=== PATIENT | male | born 1975 | race Caucasian/White ===

== ENCOUNTER → 2020-06-09 11:22 | Outpatient (CLI) | payer OTHER, SELFPAY ==
[2020-06-09 12:57] LABS: COVID19 -Nasal RAPID Negative (Negative)
== END ==
PROVIDERS: PCP Family Medicine; Visit Provider Physician Assistant
DX: Z11.59 Encounter for screening for other viral diseases (principal)
CPT/HCPCS: 87635

== ENCOUNTER 2020-06-10 06:28 | Day surgery (SDC) | payer OTHER, SELFPAY ==
[2020-06-09 14:53] VITALS: BMI 34.7
[2020-06-10] VITALS (9 sets, daily range): BP systolic 110–146; BP diastolic 55–89; PULSE 104–115; RESP 12–24; TEMP 36.1–36.9; O2SAT 83–99; BMI 35.3
--- NOTE | 2020-06-10 | DI.RAD.S_ITS ---
PROCEDURE: XR LUMBAR SPINE 2-3V INDICATIONS: L5-S1 MICRODISCECTOMY TECHNIQUE: Fluoroscopic images were obtained during an operative procedure and submitted for interpretation following the completion of the procedure. COMPARISON: [facility] Outside Film, CR, XR LUMBAR SPINE 2 OR 3 VIEWS, 10/30/2019, 11:43. [facility] Outside Film, MR, MR LUMBAR SPINE WITHOUT CONTRAST, 11/14/2019, 13:02. FINDINGS: These fluoroscopic images were performed for intraoperative localization. On these images, intraoperative equipment is seen at the L5-S1 level. Please correlate with intraoperative findings. IMPRESSION: Normal intraoperative examination. Dictated by: Michoacano Burns M.D. on 06/10/2020 at 8:27 Approved by: Michoacano Burns M.D. on 06/10/2020 at 8:28
[2020-06-10] MEDS: ACETAMINOPHEN 325 MG TABLET 975 MG PO (06:49)
[2020-06-10] MEDS: CELECOXIB 200 MG CAPSULE 400 MG PO (06:50)
[2020-06-10] MEDS: LACTATED RINGERS 1,000 ML 42 ML IV (07:07)
--- NOTE | 2020-06-10 07:23 | PM.PREOP ---
Pre-operative Note COVID-19 COVID-19 status: Negative Result date/Date tested (Pos, Neg/Pending): 06/09/20 Interval Note History & Physical reviewed/Exam performed by Physician: Yes Changes to H&P: Yes H&P completed within 30 days and has changed as indicated here:: Pain is getting much worse and difficulty urinating.
[2020-06-10] MEDS: CEFAZOLIN 2 GM/100 ML FROZ.PIGGY IV (07:45)
--- NOTE | 2020-06-10 08:05 | SUR.OPER ---
Prone on spine table, head in foam head support, padded chest and pelvic supports, gel pad at knees, lower legs supported by pillows; nipples, genitalia and toes free of pressure, arms secured on foam padded arm boards at <90 degrees abduction. Tape over blanket at thigh secured to table.
[2020-06-10] MEDS: THROMBIN (RECOMBINANT) 5,000 UNIT VIAL 5000 UNIT TOP (08:16)
[2020-06-10] MEDS: SODIUM CHLORIDE 0.9% 1,000 ML, GENTAMICIN 80 MG IRR (08:17)
[2020-06-10] MEDS: BUPIVACAINE 0.25% (PF) 8 ML, fentaNYL 100 MCG INJ (08:20)
--- NOTE | 2020-06-10 09:09 | P.OP_ITS ---
Operative Date/Time/Diagnoses Date of procedure: 06/10/20 Time of procedure: 09:09 Pre-op diagnosis: Lumbar disc herniation with radiculopathy Post-op diagnosis: same Procedure & Clinicians Procedure: Left L5-S1 diskectomy Use of microscope Placement of epidural catheter Same procedure as scheduled: Yes Indications: [age] year old male with intractable pain from a lumbar disc herniation. They had failed conservative management and requested operative intervention. Risks and benefits of surgery were discussed and appropriate consents were obtained. Surgeon: Natan Benitez Continuous Crusher Operator: Yue Rdz Anesthesia Type: General Operative Notes Findings: None Closure Type: primary Specimen(s): none sent Estimated Blood Loss (mL): 10 Procedure in detail: Patient was brought to the operating room and intubated on the table. A time-out was performed. There were rolled over the well-padded prone position on the Virgilio table. The back was prepped and draped in standard sterile fashion. Preoperative antibiotics were given. Using fluoroscopy, a 3 cm incision was made to the well marked left of the midline at the L5-S1 level. We used Bovie to come down to and split the fascia. We then used the KIWATCH MaXcess dilators with fluoroscopy and then opened our retractors. The soft tissue was cleared off with Bovie, a marker was placed, an x-ray was taken to confirm positioning. We then brought in the microscope. A combination of high-speed bur and Kerrison were used to perform a left-sided hemilaminotomy and hemifacetectomy. We carefully retracted the dura and exposed the disc. This was primarily a large fragment densely adherent to the undersurface of the S1 nerve root. We used the ball probe and the Saline to gradually free up the extruded fragment from the nerve root until finally we could pull the nerve root medially and the disc fragment was removed as 1 large piece approximately 7 x 20 mm in size. We then could easily manipulate the nerve root back and forth. The disc space was probed with the ball probe but there was no further protrusion of the disc or any loose fragments and no pressure on the root. The wound was copiously irrigated. An epidural catheter was filled with 100 mcg of fentanyl and 8 mL of 0.25% Marcaine. The dura was carefully depressed under the laminotomy site and the catheter was advanced 6 cm cephalad. The retractor was removed and the fascia was closed. The epidural catheter was then injected without resistance and removed. Vancomycin powder was placed in the wound. Superficial and skin were closed. Sterile dressing was placed. The patient was then rolled over, transferred to the stretcher, and brought to recovery room without complications. Complications: none Post-operative Condition: stable Disposition: PACU Plan for aftercare: Outpatient. Limited activity for 2 weeks and then start PT after 1st postoperative visit.
[2020-06-10] MEDS: OXYCODONE IR 5 MG TABLET PO (09:34)
--- NOTE | 2020-06-10 09:52 | SUR.PHASEII ---
Dr. Ramirez reported that pt. was tachycardic during the entire case even with a dose of esmolol. Pt. alert and doing fine at this time.
== END 2020-06-10 10:13 | disposition home or self-care (01) ==
PROVIDERS: PCP Family Medicine; Referring Provider Family Medicine; Visit Provider Orthopaedic Surgery
PROC: (CPT 63030; principal; 2020-06-10 07:45)
DX: M51.17 Intervertebral disc disorders with radiculopathy, lumbosacral region (principal); I10 Essential (primary) hypertension; G43.909 Migraine, unspecified, not intractable, without status migrainosus; G47.33 Obstructive sleep apnea (adult) (pediatric); K21.9 Gastro-esophageal reflux disease without esophagitis; E66.9 Obesity, unspecified; Z68.35 Body mass index [BMI] 35.0-35.9, adult
CPT/HCPCS: 63030; 72100; 76000; 82962; J0330; J0690; J1100; J2250; J2405; J2704; J3010